=== PATIENT | female | born 1955 | race Caucasian/White ===

== ENCOUNTER → 2019-09-18 | Outpatient (CLI) | payer OTHER | LOC: HYPER 09:22 | PROVIDERS: ATTEND Emergency Medicine | DX: L89.314 Pressure ulcer of right buttock, stage 4 (principal); L89.323 Pressure ulcer of left buttock, stage 3; L97.119 Non-pressure chronic ulcer of right thigh with unspecified severity; G35 Multiple sclerosis; E03.9 Hypothyroidism, unspecified; E55.9 Vitamin D deficiency, unspecified; I89.0 Lymphedema, not elsewhere classified; N39.41 Urge incontinence; N31.9 Neuromuscular dysfunction of bladder, unspecified; F41.9 Anxiety disorder, unspecified; Z74.1 Need for assistance with personal care ==

== ENCOUNTER 2020-09-01 16:33 | Emergency (ER) | payer OTHER ==
[~2020-09-01] VITALS: Ht 160 cm; Wt 49.9 kg
[2020-09-01] MEDS ORDERED: MUPIROCIN22 GM TOP (16:54)
[2020-09-01] MEDS ORDERED: NAPROXEN250 MG PO (16:54)
[2020-09-01] MEDS ORDERED: OMEPRAZOLE 20 M20 M1 PO (16:56)
[2020-09-01] MEDS ORDERED: ONDANSETRON HCL4 M2 PO (16:57)
[2020-09-01] MEDS ORDERED: OXYCODONE HCL 55 MG PO (16:58)
[2020-09-01] MEDS ORDERED: K-DUR 20 MEQ T20 MEQ PO (16:58)
[2020-09-01] MEDS ORDERED: ENBRACE HR SOF1 EACH PO (16:59)
[2020-09-01] MEDS ORDERED: PRE PROTEIN 2030 ML PO (17:02)
[2020-09-01] MEDS ORDERED: SODIUM CHLORID500 M1 IV (17:05)
[2020-09-01] MEDS ORDERED: VITAMIN C500 M2 PO (17:06)
[2020-09-01] MEDS ORDERED: AMANTADINE 100100 M1 PO (17:06)
[2020-09-01] MEDS ORDERED: BACLOFEN20 MG PO (17:07)
[2020-09-01] MEDS ORDERED: CELEXA 20 MG TA20 MG PO (17:07)
[2020-09-01] MEDS ORDERED: ASA81BEC PO (17:07)
[2020-09-01] MEDS ORDERED: LEVOTHYROXINE125 MCG PO (17:08)
[2020-09-01] MEDS ORDERED: FUROSEMIDE 40 M40 M1 PO (17:08)
[2020-09-01] MEDS ORDERED: GABAPENTIN 100100 MG PO (17:08)
[2020-09-01 17:57] LABS: CALCIUM 9.3 mg/dL (8.5-10.1); CREATININE 0.6 mg/dL (0.6-1.0); POTASSIUM 3.9 mmol/L (3.5-5.1)
[2020-09-01 18:00] LABS: HEMATOCRIT 33.4 % (37.0-47.0); MCH 28.9 pg (26.0-34.0); MCHC 33.1 g/dL (28.0-37.0); MCV 87.5 fL (80.0-100.0); PLATELET COUNT 157 thou/uL (150-400); RBC 3.82 mil/uL (4.20-5.00); RDW 15.8 % (10.5-14.5); WBC 4.7 thou/uL (4.0-11.0)
[2020-09-01 18:03] LABS: ALBUMIN 2.6 g/dL (3.4-5.0); TOTAL BILIRUBIN 0.3 mg/dL (0.2-1.0); TOTAL PROTEIN 7.8 g/dL (6.4-8.2)
[2020-09-01 18:48] LABS: ABSOLUTE NEUTROPHILS 3.6 thou/uL (1.4-8.2)
[2020-09-01 18:49] LABS: ANISOCYTOSIS 1+; MICROCYTES 1+; POLYCHROMASIA 1+
[2020-09-01 20:37] VITALS: BP 108/49
== END 2020-09-01 20:39 ==
LOC: ER 16:33
PROVIDERS: Emergency Medicine
DX: R51.9 Headache, unspecified (principal); E78.00 Pure hypercholesterolemia, unspecified; E03.9 Hypothyroidism, unspecified; I10 Essential (primary) hypertension; K21.9 Gastro-esophageal reflux disease without esophagitis; Z79.899 Other long term (current) drug therapy; Z79.891 Long term (current) use of opiate analgesic; Z79.82 Long term (current) use of aspirin; Z88.6 Allergy status to analgesic agent; Z88.1 Allergy status to other antibiotic agents; Z88.2 Allergy status to sulfonamides; Z91.09 Other allergy status, other than to drugs and biological substances